=== PATIENT | male | born 1955 | race African-American/Black ===

== ENCOUNTER 2016-08-27 08:48 | Emergency (ER) | payer BC ==
[2016-08-27 08:56] VITALS: BP 149/82
--- NOTE | 2016-08-27 09:03 | UC ---
Ear Complaint HPI - HPI Summary HPI Summary: left ear clogged x 2 days no ear pain, no cold symptoms - History of Current Complaint Chief Complaint: UCEar Stated Complaint: EAR PAIN-CLOGGED Time Seen by Provider: 08/27/16 09:00 Hx Obtained From: Patient Onset/Duration: Gradual Onset, Lasting Days - 2, Still Present Severity Initially: Moderate Severity Currently: Severe Aggravating Factors: Nothing Alleviating Factors: Nothing Associated Signs/Symptoms: Negative: Discharge, Hearing Loss, Foreign Body Sensation, Trauma to Ear, Swelling @, URI Symptoms - Allergies/Home Medications Allergies/Adverse Reactions: Allergies Allergy/AdvReac Type Severity Reaction Status Date / Time No Known Allergies Allergy Verified 08/27/16 08:56 Home Medications: Home Medications Carvedilol TAB* [Coreg TAB*] 25 mg PO DAILY 08/27/16 [History Confirmed 08/27/16 ] Furosemide TAB* [Lasix TAB*] 40 mg PO DAILY 08/27/16 [History Confirmed 08/27/16 ] Linagliptin (NF) [Tradjenta (NF)] 2.5 mg PO DAILY 08/27/16 [History Confirmed ] Losartan TAB* [Cozaar TAB*] 100 mg PO DAILY 08/27/16 [History Confirmed 08/27/16 ] amLODIPine TAB* [Norvasc 5 mg TAB*] 5 mg PO DAILY 08/27/16 [History Confirmed ] cloNIDine TAB* [Catapres 0.1 MG TAB*] 0.1 mg PO DAILY 08/27/16 [History Confirmed 08/27/16] glipiZIDE TAB* [Glucotrol TAB*] 5 mg PO DAILY 08/27/16 [History Confirmed ] PMH/Surg Hx/FS Hx/Imm Hx Endocrine History: Diabetes Cardiovascular History: Hypertension - Surgical History Surgical History: None - Family History Known Family History: Positive: Hypertension - Social History Alcohol Use: Rare Substance Use Type: None Smoking Status (MU): Never Smoked Tobacco Review of Systems Constitutional: Negative Skin: Negative Eyes: Negative ENT: Other - left ear clogged Respiratory: Negative All Other Systems Reviewed And Are Negative: Yes Physical Exam Triage Information Reviewed: Yes Appearance: Well-Appearing, No Pain Distress, Well-Nourished Vital Signs: Initial Vital Signs Temp 98.2 F 08/27/16 08:50 Pulse 83 08/27/16 08:50 Resp 16 08/27/16 08:50 BP 149/82 08/27/16 08:50 Pulse Ox 98 08/27/16 08:50 Vital Signs Reviewed: Yes Eyes: Positive: Conjunctiva Clear ENT: Positive: Normal ENT inspection, Hearing grossly normal, TMs normal, Other : - bilateral cerumen impaction. Negative: TM bulging, TM dull, TM red Neck exam: Normal Neck: Positive: Supple, Nontender, No Lymphadenopathy Respiratory: Positive: Chest non-tender, Lungs clear, Normal breath sounds Cardiovascular: Positive: RRR, No Murmur, Pulses Normal Ear Complaint Course/Dx - Differential Dx/Diagnosis Provider Diagnoses: cerumen impaction bilateral Discharge - Discharge Plan Condition: Stable Disposition: HOME Patient Education Materials: Cerumen Impaction (ED)
== END 2016-08-27 09:22 | disposition home or self-care (01) ==
LOC: UCCORT 08:48
DX: H61.23 Impacted cerumen, bilateral (principal); I10 Essential (primary) hypertension; E11.9 Type 2 diabetes mellitus without complications
CPT/HCPCS: 99203; G0463

== ENCOUNTER 2016-09-06 08:22 | Emergency (ER) | payer BC ==
--- NOTE | 2016-09-06 08:31 | UC ---
Ear Complaint HPI - HPI Summary HPI Summary: 61 year old male presents with complains of left ear pain/wax. - History of Current Complaint Stated Complaint: EAR PAIN Time Seen by Provider: 09/06/16 08:31 - Allergies/Home Medications Allergies/Adverse Reactions: Allergies Allergy/AdvReac Type Severity Reaction Status Date / Time No Known Allergies Allergy Verified 08/27/16 08:56 PMH/Surg Hx/FS Hx/Imm Hx Previously Healthy: Yes - Surgical History Surgical History: None - Family History Known Family History: Positive: Hypertension - Social History Alcohol Use: Rare Substance Use Type: None Smoking Status (MU): Never Smoked Tobacco Review of Systems Constitutional: Negative Skin: Negative Eyes: Negative ENT: Ear Ache Respiratory: Negative Cardiovascular: Negative Gastrointestinal: Negative Genitourinary: Negative Motor: Negative Neurovascular: Negative Musculoskeletal: Negative Neurological: Negative Psychological: Negative All Other Systems Reviewed And Are Negative: Yes Physical Exam Triage Information Reviewed: Yes Eye Exam: Normal ENT: Positive: Other: - left ear wax left otitis externa Dental Exam: Normal Neck exam: Normal Neck: Positive: 1 Respiratory Exam: Normal Cardiovascular Exam: Normal Abdominal Exam: Normal Musculoskeletal Exam: Normal Neurological Exam: Normal Psychological Exam: Normal Skin Exam: Normal Ear Complaint Course/Dx - Differential Dx/Diagnosis Provider Diagnoses: left ear way. left otitis externa Discharge - Discharge Plan Condition: Stable Disposition: HOME Referrals: Non Staff,Doctor [Primary Care Provider] -
[2016-09-06 08:41] VITALS: BP 146/81
== END 2016-09-06 09:10 | disposition home or self-care (01) ==
LOC: UCCORT 08:22
DX: H60.92 Unspecified otitis externa, left ear (principal)
CPT/HCPCS: 99213; G0463

== ENCOUNTER 2018-07-23 13:33 | Emergency (ER) | payer BC ==
[2018-07-23 14:11] VITALS: BP 157/84
--- NOTE | 2018-07-23 14:15 | UC ---
Lower Extremity/Ankle HPI - HPI Summary HPI Summary: left foot pain x 5 days pain and swelling of left greater toe for the past 5 days no known injury , sudden onset, pain is 7 out of 10 / sharp worse with walking / better with rest, + redness of the area , hx of gout no fever, no chills - History of Current Complaint Stated Complaint: LT FOOT PAIN Time Seen by Provider: 07/23/18 14:00 Hx Obtained From: Patient Onset/Duration: Sudden Onset, Lasting Days - 5, Still Present Severity Initially: Moderate Severity Currently: Severe Aggravating Factor(s): Standing, Ambulation Alleviating Factor(s): Rest, Elevation Able to Bear Weight: Yes - Risk Factors Gout Risk Factors: Age Over 40, Male, Diabetes, Hypertension, Alcohol Abuse - Allergies/Home Medications Allergies/Adverse Reactions: Allergies Allergy/AdvReac Type Severity Reaction Status Date / Time No Known Allergies Allergy Verified 07/23/18 14:12 PMH/Surg Hx/FS Hx/Imm Hx - Additional Past Medical History Additional PMH: hx of gout Endocrine History: Diabetes Cardiovascular History: Hypertension - Surgical History Surgical History: None - Family History Known Family History: Positive: Hypertension - Social History Alcohol Use: Rare Substance Use Type: None Smoking Status (MU): Never Smoked Tobacco Review of Systems All Other Systems Reviewed And Are Negative: Yes Constitutional: Positive: Negative Skin: Positive: Negative Eyes: Positive: Negative ENT: Positive: Negative Respiratory: Positive: Negative Is Patient Immunocompromised?: No Physical Exam Triage Information Reviewed: Yes Appearance: Well-Appearing, No Pain Distress, Well-Nourished Vital Signs Reviewed: Yes Eye Exam: Normal Eyes: Positive: Conjunctiva Clear ENT: Positive: Normal ENT inspection, Hearing grossly normal, Pharynx normal Neck: Positive: Supple, Nontender, No Lymphadenopathy Respiratory: Positive: Chest non-tender, Lungs clear, Normal breath sounds Cardiovascular: Positive: RRR, No Murmur, Pulses Normal Musculoskeletal: Positive: Other: - left great toe : + swelling/ erythema / tenderness left 1st MTP joint Skin Exam: Normal Lower Extremity Course/Dx - Course Course Of Treatment: hypertension cont. with current meds follow up with your pcp in one week - Differential Dx/Diagnosis Provider Diagnosis: Gout attack, Hypertension Discharge - Sign-Out/Discharge Documenting (check all that apply): Patient Departure All imaging exams completed and their final reports reviewed: No Studies - Discharge Plan Condition: Stable Disposition: HOME Prescriptions: Indomethacin 50 mg PO TID #15 capsule Patient Education Materials: Gout (ED) Referrals: Vasyl Snell MD [Primary Care Provider] - 7 Days - Billing Disposition and Condition Condition: STABLE Disposition: Home
== END 2018-07-23 14:31 | disposition home or self-care (01) ==
LOC: UCCORT 13:33
DX: M10.9 Gout, unspecified (principal); I10 Essential (primary) hypertension; E11.9 Type 2 diabetes mellitus without complications
CPT/HCPCS: 99212; G0463